=== PATIENT | female | born 1965 | race Caucasian/White ===

== ENCOUNTER 2020-10-08 14:39 | Emergency (ER) | payer OTHER ==
[~2020-10-08 14:39] MED LIST: CLARITIN10 MG PO; CLEOCIN HCL300 MG PO; DIFLUCAN 100 M100 MG PO; DIFLUCAN150 MG PO; FISH OIL 500 M1 EAC1 PO; GLUCOSAMINE HC500 MG PO; GLUCOTROL 10 MG10 MG PO; LACTINEX TABLET1 EA PO; LEVAQUIN750 MG PO; LOPRESSOR50 MG PO; MAGOX 400400 MG PO; MULTIVITAMINS1 EAC1 PO; NOVOLIN 70100 UNIT/1 SQ; PRINIVIL20 MG PO; STOOL SOFTENER100 MG PO; SYNTHROID100 MCG PO; TRAMADOL HCL50 MG PO; VITAMIN B-121000 MCG PO; VITAMIN D32000 UNI1 PO; ZOLOFT100 MG PO
[2020-10-08 16:33] LABS: HEMOGLOBIN 14.3 gm/dl (12.3-15.3); RED BLOOD COUNT 4.49 M/UL (4.00-5.10); WHITE BLOOD COUNT 11.4 K/UL (4.5-11.0)
[2020-10-08] MEDS ORDERED: DOXYCYCLINE MO100 MG PO (20:52)
== END 2020-10-08 21:18 | disposition home or self-care (01) ==
LOC: ER1 14:39
PROVIDERS: Physician Assistant
DX: L02.211 Cutaneous abscess of abdominal wall (principal); L03.311 Cellulitis of abdominal wall; I10 Essential (primary) hypertension; E78.5 Hyperlipidemia, unspecified; E11.9 Type 2 diabetes mellitus without complications; E66.01 Morbid (severe) obesity due to excess calories; Z88.0 Allergy status to penicillin; Z88.2 Allergy status to sulfonamides; Z79.899 Other long term (current) drug therapy
CPT/HCPCS: 10060; 80053; 82962; 83605; 85025; 85652; 86140; 99283